=== PATIENT | male | born 1970 | race Caucasian/White ===

== ENCOUNTER 2019-11-17 22:57 | Emergency (ER) | payer BC ==
[~2019-11-17] VITALS: Ht 180.3 cm; Wt 112.7 kg
[2019-11-17 23:05] VITALS: BP 130/86
[2019-11-17] MEDS ORDERED: KETOROLAC 30 MG/1 ML ONE (23:26)
[2019-11-17] MEDS ORDERED: KETOROLAC 30 MG/1 ML IM ONE (23:30)
--- NOTE | 2019-11-17 23:32 | NUR ---
PT MEDICATED PER MAR, AND OFF TO IMAGING AT THIS TIME. SON AT BEDSIDE PROVIDED WITH WATER PER REQUEST.
--- NOTE | 2019-11-18 00:26 | NUR ---
PT PROVIDED WITH WARM BLANKET, BED ADJUSTED. PT DENIES ANY FURTHER NEEDS OR CONCERNS, CALL LIGHT IN REACH.
--- NOTE | 2019-11-18 00:45 | NUR ---
PT PROVIDED WITH DISCHARGE INFO, ARM SLING, AND INSTRUCTIONS ON ITS USE. VERBALIZES UNDERSTANDING. DENIES ANY FURTHER NEEDS AT THIS TIME.
== END 2019-11-18 00:57 | disposition home or self-care (01) ==
LOC: ED 11-18
DX: S46.211A Strain of muscle, fascia and tendon of other parts of biceps, right arm, initial encounter (principal); X58.XXXA Exposure to other specified factors, initial encounter; Y93.89 Activity, other specified; Y92.098 Other place in other non-institutional residence as the place of occurrence of the external cause; Y99.8 Other external cause status
CPT/HCPCS: 29240; 73030; 73080; 96372; 99284; J1885; 99283

== ENCOUNTER 2019-12-04 10:34 | Day surgery (SDC) | payer BC ==
[~2019-12-04] VITALS: Ht 180.3 cm; Wt 111.5 kg
[2019-12-04] MEDS ORDERED: LACTATED RINGERS 1,000 ML IV SCH (11:09)
[2019-12-04] MEDS ORDERED: [UNRECOGNIZED DRUG - OTHER] (11:13)
[2019-12-04] MEDS ORDERED: PRAS25CA PO (11:13)
[2019-12-04] MEDS ORDERED: SELE200C PO (11:13)
[2019-12-04] MEDS ORDERED: TAMS-11 PO (11:13)
[2019-12-04] MEDS ORDERED: AMPH15TA PO (11:13)
[2019-12-04] MEDS ORDERED: MSM (11:13)
[2019-12-04] MEDS ORDERED: TESTOSTERONE PO (11:13)
[2019-12-04 11:14] VITALS: BP 122/86
[2019-12-04] MEDS ORDERED: CHLORHEXIDINE 15 ML UDC MM ONE (11:30)
[2019-12-04] MEDS ORDERED: PLEASE ENTER HEIGHT AND WEIGHT MC SCH (11:30)
== END 2019-12-04 11:45 | disposition home or self-care (01) ==
LOC: OUT 10:34
PROVIDERS: ATTEND Orthopaedic Surgery
DX: M66.821 Spontaneous rupture of other tendons, right upper arm (principal); Z20.828 Contact with and (suspected) exposure to other viral communicable diseases; Z53.8 Procedure and treatment not carried out for other reasons
CPT/HCPCS: 87635